=== PATIENT | female | born 2000 | race Caucasian/White ===

== ENCOUNTER 2022-03-09 11:54 | Emergency (ER) | payer BC, SELFPAY ==
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
[2022-03-09 12:35] LABS: Absolute Lymphocytes (CBC) 1.9 K/uL (0.7-4.9); Hematocrit 42.3 % (36.0-45.0); Lymphocytes % 13.2 % (15.3-44.8); MPV 8.1 fL (7.6-11.3); RBC Red Blood Cell Count 4.87 M/uL (3.86-4.86)
[2022-03-09 12:52] LABS: Albumin 4.6 g/dL (3.4-5.0); Bilirubin Direct 0.1 mg/dL (0-0.2); Bilirubin Total 0.4 mg/dL (0.2-1.0); Magnesium 2.2 mg/dL (1.8-2.4); Potassium 3.4 mmol/L (3.5-5.1)
--- NOTE | 2022-03-09 12:54 | RAD REPORT ---
EXAM DESCRIPTION: RAD - Chest Single View - 03/09/2022 12:36 pm CLINICAL HISTORY: DYSPNEA, sharp right-sided chest pain COMPARISON: None TECHNIQUE: AP portable chest image was obtained 03/09/2022 12:36 pm . FINDINGS: Lungs are clear. Heart and vasculature are normal. No measurable pleural effusion and no p neumothorax. No acute bony abnormality seen. No acute aortic findings suspected. IMPRESSION: No acute cardiopulmonary process.
[2022-03-09] MEDS ORDERED: KETOROLAC 30 MG/ML INJ ONE (13:23)
--- NOTE | 2022-03-09 13:39 | ER ---
Nurse's Notes [facility] Name: Ely Duncan Age: 21 yrs Sex: Female : 2000 Arrival Date: 03/09/2022 Time: 11:57 Bed 25 Private MD: Diagnosis: Costochondritis Presentation: 03/09 12:01 Chief complaint: Patient states: i have been having trouble breathing for a month now. tw2 started out with a sharp pain in my right side when i take a sharp breath. today it has started to feel worse. mostly on my right side and i feel it with every breath. Coronavirus screen: At this time, the client does not indicate any symptoms associated with coronavirus-19. Ebola Screen: Patient denies travel to an Ebola-affected area in the 21 days before illness onset. Initial Sepsis Screen: Does the patient meet any 2 criteria? No. Patient's initial sepsis screen is negative. Does the patient have a suspected source of infection? No. Patient's initial sepsis screen is negative. Risk Assessment: Do you want to hurt yourself or someone else? Patient reports no desire to harm self or others. Onset of symptoms was March 09, 2022. 12:01 Method Of Arrival: Wheelchair tw2 12:01 Acuity: LISBET 3 tw2 12:05 Note provider LAURIE Saldana in triage at this time. tw2 Triage Assessment: 12:02 General: Appears in no apparent distress. slender, Behavior is calm, cooperative, tw2 appropriate for age. Pain: Complains of pain in right sided lung pain. Respiratory: Reports shortness of breath at rest Onset: The symptoms/episode began/occurred couple weeks, the patient has mild shortness of breath. 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 - Social history:: Smoking status: Patient reports the use of cigarette tobacco products, somke once in morning, its need. i also vape 5%, Patient uses street drugs, marijuana. Screenin:05 Abuse screen: Denies threats or abuse. Nutritional screening: No deficits noted. tw2 Tuberculosis screening: No symptoms or risk factors identified. Fall Risk None identified. Assessment: 12:06 Reassessment: provider in triage room performing assessment at this time. tw2 12:10 Reassessment: pt reports " i have also lost about 20 pounds since i started my job 4 tw2 months ago. i am super stressed and have talked to my work [employer] program to try and get some help", provider notified. 12:45 General: Appears in no apparent distress. comfortable, Behavior is cooperative. Pain: ww Complains of pain in abdomen. Neuro: Level of Consciousness is awake, alert, obeys commands, Oriented to person, place, time, situation, Moves all extremities. Gait is steady, Speech is normal. Cardiovascular: Capillary refill < 3 seconds Patient's skin is warm and dry. Rhythm is regular. Respiratory: Airway is patent Respiratory effort is even, unlabored, Respiratory pattern is regular, symmetrical. GI: Abdomen is non-distended. : No signs and/or symptoms were reported regarding the genitourinary system. Derm: Skin is intact, is healthy with good turgor. 13:52 Reassessment: Patient appears in no apparent distress at this time. No changes from ww previously documented assessment. Patient and/or family updated on plan of care and expected duration. Pain level reassessed. Patient is alert, oriented x 3, equal unlabored respirations, skin warm/dry/pink. Vital Signs: 12:01 BP 129 / 84; Pulse 67; Resp 17; Temp 98.2(TE); Pulse Ox 100% on R/A; Weight 45.36 kg tw2 (R); Height 5 ft. 2 in. (157.48 cm); Pain 5/10; 12:01 Body Mass Index 18.29 (45.36 kg, 157.48 cm) tw2 ED Course: 11:57 Patient arrived in ED. jj6 11:58 [facility] jh7 11:58 Rosendo Marsh MD is Attending Physician. jh7 11:59 Rosendo Marsh MD is Attending Physician. jh7 12:00 [facility] jh[facility] 12:00 Rosendo Marsh MD is Attending Physician. [facility] 12:01 Pilar Diego FNP is [facility]. 7 12:01 Rosendo Marsh MD is Attending Physician. 7 12:02 Triage completed. tw2 12:04 Arm band placed on. tw2 12:06 Placed in gown. Bed in low position. Call light in reach. tw2 12:31 Yasemin Marcos, RN is Primary Nurse. ww 12:37 XRAY CXR (1 view) In Process Unspecified. EDMS 13:38 Rosendo Marsh MD is Referral Physician. [facility] 13:52 No provider procedures requiring assistance completed. IV discontinued, intact, ww bleeding controlled, No redness/swelling at site. Pressure dressing applied. Administered Medications: 13:20 Drug: Ketorolac 30 mg Route: IVP; Site: right antecubital; ww Medication: 12:05 VIS not applicable for this client. tw2 Outcome: 13:39 Discharge ordered by MD. [facility] 13:52 Discharged to home ambulatory. 13:52 Condition: stable 13:52 Discharge instructions given to patient, Instructed on discharge instructions, follow up and referral plans. medication usage, safety practices, Demonstrated understanding of instructions, follow-up care, medications, Prescriptions given X 2. 13:52 Patient left the ED. Signatures: Dispatcher [employer] Marie Crowder RN RN 2 Pilar Hill jj6 Yasemin Marcos, DEE RN Pilar Diego FNP FNP [facility]
--- NOTE | 2022-03-09 13:40 | EDPHYS ---
Physician Documentation [facility] Name: Ely Duncan Age: 21 yrs Sex: Female : 2000 Arrival Date: 03/09/2022 Time: 11:57 Bed 25 Private MD: JASPER Physician Rosendo Marsh HPI: 03/09 12:09 This 21 yrs old Female presents to ER via Wheelchair with complaints of Breathing jh7 Difficulty. 12:09 The patient has shortness of breath at rest, with light activity. Onset: The jh7 symptoms/episode began/occurred 1 month(s) ago. The patient's shortness of breath is aggravated by nothing, is alleviated by OTC meds. Associated signs and symptoms: Pertinent positives: Right rib pain, Pertinent negatives: diaphoresis, dizziness, fever, loss of consciousness, nausea, numbness in extremities, vomiting, Cough . With right-sided rib pain for several weeks. States that the pain has progressed and now worsens with every breath. States that she was seen at an urgent care a few days ago, and diagnosed with pleurisy. She was prescribed a steroid pack and states that she has had minimal relief. LMP 02/14. Denies cough, fever, dizziness, or any other symptoms. 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 - Social history:: Smoking status: Patient reports the use of cigarette tobacco products, somke once in morning, its need. i also vape 5%, Patient uses street drugs, marijuana. ROS: 12:09 Constitutional: Negative for fever, chills, and weight loss, Cardiovascular: Negative jh7 for chest pain, palpitations, and edema, Abdomen/GI: Negative for abdominal pain, nausea, vomiting, diarrhea, and constipation, MS/Extremity: Negative for injury and deformity, Skin: Negative for injury, rash, and discoloration, Neuro: Negative for headache, weakness, numbness, tingling, and seizure. 12:09 Respiratory: Positive for pleurisy, shortness of breath, Negative for cough, wheezing. 12:09 All other systems are negative. Exam: 12:09 Constitutional: This is a well developed, well nourished patient who is awake, alert, jh7 and in no acute distress. Chest/axilla: Normal chest wall appearance and motion. Tender at costochondral junction between R ribs 5-8 with no deformity. No lesions are appreciated. Cardiovascular: Regular rate and rhythm with a normal S1 and S2. No gallops, murmurs, or rubs. Normal PMI, no JVD. No pulse deficits. Abdomen/GI: Soft, non-tender, with normal bowel sounds. No distension or tympany. No guarding or rebound. No evidence of tenderness throughout. Skin: Warm, dry with normal turgor. Normal color with no rashes, no lesions, and no evidence of cellulitis. MS/ Extremity: Pulses equal, no cyanosis. Neurovascular intact. Full, normal range of motion. Neuro: Awake and alert, GCS 15, oriented to person, place, time, and situation. Normal gait. 12:09 Respiratory: Exam negative for decreased breath sounds, respiratory distress, wheezing, the patient does not display signs of respiratory distress, Respirations: normal, Breath sounds: are clear throughout, Respiratory rate: 18 Vital Signs: 12:01 BP 129 / 84; Pulse 67; Resp 17; Temp 98.2(TE); Pulse Ox 100% on R/A; Weight 45.36 kg tw2 (R); Height 5 ft. 2 in. (157.48 cm); Pain 5/10; 12:01 Body Mass Index 18.29 (45.36 kg, 157.48 cm) tw2 MDM: 12:06 Patient medically screened. erin 13:59 Differential diagnosis: Anxiety Reaction pneumonia, Pneumothorax Pulmonary Embolism jh7 Costochondritis. The patient's pulmonary embolism risk score was calculated as follows: No Risks (0 Pts). Data reviewed: vital signs, nurses notes, lab test result(s), radiologic studies, plain films. Data interpreted: Pulse oximetry: is 100 %. Interpretation: normal. Counseling: I had a detailed discussion with the patient and/or guardian regarding: the historical points, exam findings, and any diagnostic results supporting the discharge/admit diagnosis, lab results, radiology results, to return to the emergency department if symptoms worsen or persist or if there are any questions or concerns that arise at home. ED course: The patient remained stable throughout the ER visit. Reviewed both labs and imaging which were normal. Informed of her diagnosis, and need to take medication as directed. If she develops any new concerning symptoms, she may return to the ER for further eval.. 03/09 12:09 Order name: BMP; Complete Time: 13:11 [facility] 03/09 12:09 Order name: CBC with Diff; Complete Time: 13: [facility] 03/09 12:09 Order name: D-Dimer; Complete Time: 13: [facility] 03/09 12:09 Order name: Hepatic Function; Complete Time: 13: [facility] 03/09 12:09 Order name: Lipase; Complete Time: 13: [facility] 03/09 12:09 Order name: Magnesium; Complete Time: 13: [facility] 03/09 12:09 Order name: PT-INR; Complete Time: 13: [facility] 03/09 12:09 Order name: Ptt, Activated; Complete Time: 13: [facility] 03/09 12:09 Order name: XRAY CXR (1 view); Complete Time: 13: [facility] 03/09 12:09 Order name: IV Saline Lock; Complete Time: 12: [facility] 03/09 12:09 Order name: Labs collected and sent; Complete Time: 12: [facility] 03/09 12:09 Order name: O2 Per Protocol; Complete Time: 12: [facility] 03/09 12:09 Order name: O2 Sat Monitoring; Complete Time: 12:31 [facility] Administered Medications: 13:20 Drug: Ketorolac 30 mg Route: IVP; Site: right antecubital; Disposition Summary: 03/09/22 13:39 Discharge Ordered Location: Home [facility] Problem: new [facility] Symptoms: have improved [facility] Condition: Stable [facility] Diagnosis - Costochondritis [facility] Followup: [facility] - With: Rosendo Marsh MD - When: 1 - 2 days - Reason: Recheck today's complaints Discharge Instructions: - Discharge Summary Sheet tw2 - Costochondritis jh7 - Costochondritis, [id number] [facility] Forms: - Work release form tw2 - Medication Reconciliation Form [facility] - Thank You Letter [facility] Prescriptions: - Naprosyn 500 mg Oral Tablet - take 1 tablet by ORAL route 2 times per day take with food; 30 tablet; Refills: jh7 0, Product Selection Permitted - Zanaflex 4 mg Oral Tablet - take 1 tablet by ORAL route every 8 hours As needed; 20 tablet; Refills: 0, jh7 Product Selection Permitted Signatures: Dispatcher [employer] Rosendo Cain MD MD cha Wise, Tara, RN RN tw2 Yasemin Marcos RN RN ww Pilar Diego, PRESS ASSISTANT PRESS ASSISTANT jh7 Corrections: (The following items were deleted from the chart) 14:01 12:09 Constitutional: This is a well developed, well nourished patient who is awake, jh7 alert, and in no acute distress. Chest/axilla: Normal chest wall appearance and motion. Nontender with no deformity. No lesions are appreciated. Cardiovascular: Regular rate and rhythm with a normal S1 and S2. No gallops, murmurs, or rubs. Normal PMI, no JVD. No pulse deficits. Abdomen/GI: Soft, non-tender, with normal bowel sounds. No distension or tympany. No guarding or rebound. No evidence of tenderness throughout. Skin: Warm, dry with normal turgor. Normal color with no rashes, no lesions, and no evidence of cellulitis. MS/ Extremity: Pulses equal, no cyanosis. Neurovascular intact. Full, normal range of motion. Neuro: Awake and alert, GCS 15, oriented to person, place, time, and situation. Normal gait. jh7
[2022-03-09 14:01] VITALS: BP 129/84; TEMP 98.2; O2SAT 100
== END 2022-03-09 13:52 | disposition home or self-care (01) ==
LOC: ER 11:54
DX: M94.0 Chondrocostal junction syndrome [Tietze] (principal); R06.02 Shortness of breath
CPT/HCPCS: 36415; 71045; 80048; 80076; 83690; 83735; 85025; 85379; 85610; 85730; 96374; 99283